=== PATIENT | female | born 1985 | race Hispanic/Latino ===

== ENCOUNTER 2023-01-12 06:35 | Day surgery (SDC) | payer BC ==
[2023-01-12 07:02] LABS: Urine Specific Gravity/Preg 1.015 (1.005-1.030)
[2023-01-12] MEDS ORDERED: Ringers Lactate 1,000 ML IV ONE (07:06)
[2023-01-12] MEDS ORDERED: CEFAZOLIN SODIUM 1 GM/VIAL ONE (07:06)
[2023-01-12 07:22] LABS: Absolute Lymphocytes (CBC) 0.8 K/uL (0.7-4.9); Hematocrit 33.1 % (36.0-45.0); Lymphocytes % 18.5 % (15.3-44.8); MCV 90.2 fL (80-100); MPV 8.2 fL (7.6-11.3); RBC Red Blood Cell Count 3.67 M/uL (3.86-4.86)
[2023-01-12] MEDS ORDERED: LIDOCAINE 1% 20 ML MDV ONE (07:33)
[2023-01-12] MEDS ORDERED: HEPARIN 5000 UNIT/ML 1 ML VIAL ONE (07:33)
[2023-01-12] MEDS ORDERED: NS 0.9% VIAL 20 ML ONE (07:51)
--- NOTE | 2023-01-12 09:21 | P.OP ---
Date of Service: 01/12/23 Preop diagnosis: Left breast cancer Postop diagnosis: Same Procedure performed: Placement of right IJ Port-A-Cath, interpretation of i ntraoperative fluoroscopy Surgeon: Carlos Nixon MD Sales And Service Engineer: Rosario MOSLEY Estimated blood loss: Minimal Specimen: None Findings: Normal anatomy Anesthesia: General Complications: None Drains: None Fluids and blood products: Nonapplicable Disposition: Recovery room Operative note: Patient brought to the OR and placed in the supine position. General anesthesia begun. Patient prepped and draped in the usual sterile fashion. Lidocaine 1% infiltrated locally. 18-gauge needle used to access the right IJ vein. Guidewire passed and position confirmed with fluoroscopy. 3 cm counterincision made on the right anterior chest wall. Pocket created. Bleeding controlled cautery. Tunneling device used to tunnel the catheter between the 2 wounds. Seldinger technique used. Tip of the catheter placed in the SVC under fluoroscopy. Catheter cut to appropriate size and attached to the Port-A-Cath device. Port-A-Cath device attached to the subcutaneous tissue with 3-0 Vicryl. 0 chromic used to approximate subcutaneous tissue and close skin. Port flushed with heparin and packed with heparin with good blood flow. Sterile dressing applied. Patient awakened and taken to recovery room in good general condition. Chest x-ray has been ordered. CC: Dr. Andrews's office
[2023-01-12] MEDS ORDERED: HYDROCODONE/APAP 7.5/325 MG TAB PO PRN (09:24)
[2023-01-12 09:41] VITALS: O2SAT 100
--- NOTE | 2023-01-12 09:52 | RAD REPORT ---
EXAM DESCRIPTION: Leo Single View01/12/2023 9:47 am CLINICAL HISTORY: Device placement/central venous catheter placement IMPRESSION: Central venous catheter with its tip near the junction of the brachiocephalic and superi or vena cava No pneumothorax
--- NOTE | 2023-01-12 09:54 | RAD REPORT ---
EXAM DESCRIPTION: RAD - Fluoroscopy <1 Hour - 01/12/2023 9:46 am CLINICAL HISTORY: Device placement central venous catheter placement FINDINGS: A central venous catheter was placed into the superior vena cava. Five fluoroscopic spot i mages are submitted. Fluoroscopy time 0.3 minutes The examination was performed by Dr. Nixon
[2023-01-12] MEDS ORDERED: HYDROCODONE/APAP 7.5/325 MG TAB ONE (10:29)
[2023-01-12 10:33] VITALS: BP 109/69; TEMP 97
== END 2023-01-12 11:00 | disposition home or self-care (01) ==
LOC: OR 06:35
PROVIDERS: ATTEND Surgery
PROC: 0JH60WZ Insertion of Totally Implantable Vascular Access Device into Chest Subcutaneous Tissue and Fascia, Open Approach (ICD-10-PCS; principal; 2023-01-12 08:30)
DX: C50.912 Malignant neoplasm of unspecified site of left female breast (principal)
CPT/HCPCS: 85025; 36415; 81025; 71045; 76000; 36561; J1644 ×2; A4216; J2001; J7120; J0690; C1788